=== PATIENT | female | born 1950 | race Caucasian/White ===

== ENCOUNTER 2022-04-09 06:15 | Day surgery (SDC) | payer MEDICARE ==
[2022-04-05 14:07] VITALS: BMI 25.2
[~2022-04-09 06:15] MED LIST: EPINEPHrine 0.3 MG in Ophthalmic Irrigation Solution 500 ML IRR SCH
[2022-04-09] MEDS ORDERED: Midazolam HCl 2 mg/2 ml Vial ONE (06:41)
[2022-04-09] MEDS ORDERED: fentaNYL PF 100 MCG/2 ML SYRINGE ONE (06:41)
[2022-04-09] MEDS ORDERED: Cyclopentolate 1% Opth Drop 2 ML BOT ONE (06:49)
[2022-04-09] MEDS ORDERED: Phenylephrine 2.5% Ophth Soln 5 ML BOT ONE (06:49)
[2022-04-09] MEDS ORDERED: Bupivacaine 0.75% 10 ML VIAL ONE (07:59)
[2022-04-09] MEDS ORDERED: Indocyanine Green 25 MG/10 ML VIAL ONE (07:59)
[2022-04-09] MEDS ORDERED: PROPOFOL 200 MG/20 ML VIAL ONE (07:59)
[2022-04-09] MEDS ORDERED: Lidocaine 1% PF 5 ML VIAL ONE (07:59)
[2022-04-09] MEDS ORDERED: Maxitrol 0.1% Opth Oint 3.5 GM TUBE ONE (07:59)
[2022-04-09] MEDS ORDERED: Lidocaine 4% PF 5 ML AMP ONE (07:59)
[2022-04-09] MEDS ORDERED: CEFAZOLIN 1 GM VIAL ONE (07:59)
[2022-04-09] MEDS ORDERED: Triamcinolone 0.025 % Cream 15GM TUBE ONE (07:59)
== END 2022-04-09 09:10 | disposition home or self-care (01) ==
LOC: SDC 06:15
PROVIDERS: ATTEND Ophthalmology Retina Specialist
PROC: 08T43ZZ Resection of Right Vitreous, Percutaneous Approach (ICD-10-PCS; principal; 2022-04-09)
PROC: 08NE3ZZ Release Right Retina, Percutaneous Approach (ICD-10-PCS; 2022-04-09)
DX: H35.371 Puckering of macula, right eye (principal); J45.909 Unspecified asthma, uncomplicated; G43.909 Migraine, unspecified, not intractable, without status migrainosus; Z87.891 Personal history of nicotine dependence; Z79.899 Other long term (current) drug therapy
CPT/HCPCS: J0171; J0690; J2250; J2704; J3490